=== PATIENT | male | born 1930 | race Caucasian/White ===

== ENCOUNTER → 2016-03-01 | Outpatient (CLI) | payer MEDICARE, OTHER ==
--- NOTE | 2016-03-01 14:40 | REP ---
Four view right ankle series 03/01/2016 Indication: Peña articular arthritis and comparison: None Findings: Deformity is seen within the distal tibia consistent with post traumatic changes and hypertrophic bone formation. There is a a transversely oriented fixation screw through the distal tibia . There is a lateral distal fibular side plate with multiple transverse interlocking screws. Moderate osteoarthritic changes are noted at the tibiotalar joint with moderate joint space narrowing and marginal osteophytes. There is a large spur as well as some dystrophic calcifications at the Achilles tendinous insertion on the posterior calcaneus. There is a minimal plantar calcaneal spur Impression: contour deformity within the distal tibia consistent with old healed fracture and hypertrophic bone formation. 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
== END ==
LOC: M CLY 11:08
PROVIDERS: ATTEND Family Medicine
DX: M19.071 Primary osteoarthritis, right ankle and foot (principal); M21.861 Other specified acquired deformities of right lower leg; Z87.898 Personal history of other specified conditions; E11.9 Type 2 diabetes mellitus without complications; Z98.890 Other specified postprocedural states; I10 Essential (primary) hypertension
CPT/HCPCS: 73610; 80048; 83036; 84550; 85652; 86140; G0463

== ENCOUNTER → 2016-03-01 | Outpatient (REF) | payer MEDICARE, OTHER ==
[2016-03-01 18:38] LABS: ANION GAP 11 MEQ/L (8-16); BLOOD UREA NITROGEN 24 MG/DL (7-18); CALCIUM LEVEL 8.9 MG/DL (8.8-10.2); CARBON DIOXIDE LEVEL 28 MEQ/L (21-32); CHLORIDE LEVEL 102 MEQ/L (98-107); GLOMERULAR FILTRATION RATE > 60.0 (>35); GLUCOSE, FASTING 123 MG/DL (83-110); POTASSIUM SERUM 4.1 MEQ/L (3.5-5.1); SODIUM LEVEL 141 MEQ/L (136-145); URIC ACID 7.9 MG/DL (3.5-7.2)
== END ==
LOC: M SFHCCLAY 10:45
PROVIDERS: ATTEND Family Medicine
DX: M13.10 Monoarthritis, not elsewhere classified, unspecified site (principal); I10 Essential (primary) hypertension; E11.9 Type 2 diabetes mellitus without complications

== ENCOUNTER → 2016-04-26 | Outpatient (REF) | payer MEDICARE, OTHER ==
[2016-04-29 00:06] LABS: Lyme Disease IgG/IgM Antibodie <0.91 ISR (0.00-0.90); Lyme Disease IgM Ab Quantitati <0.80 index (0.00-0.79)
== END ==
LOC: M SFHCCLAY 12:24
PROVIDERS: ATTEND Family Medicine
DX: G51.0 Bell's palsy (principal)
CPT/HCPCS: 86617; G0463

== ENCOUNTER → 2016-09-14 | Outpatient (REF) | payer MEDICARE, OTHER | LOC: M SFHCCLAY 11:16 | PROVIDERS: ATTEND Family Medicine | DX: E11.9 Type 2 diabetes mellitus without complications (principal) ==

== ENCOUNTER → 2017-01-31 | Outpatient (REF) | payer MEDICARE, OTHER ==
[2017-01-31 12:14] LABS: ANION GAP 6 MEQ/L (8-16); BLOOD UREA NITROGEN 19 MG/DL (7-18); CALCIUM LEVEL 8.8 MG/DL (8.8-10.2); CARBON DIOXIDE LEVEL 29 MEQ/L (21-32); CHLORIDE LEVEL 102 MEQ/L (98-107); CHOLESTEROL LEVEL 136 MG/DL (<200); CREATININE FOR GFR 1.01 MG/DL (0.70-1.30); GLOMERULAR FILTRATION RATE > 60.0 (>35); GLUCOSE, FASTING 152 MG/DL (83-110); POTASSIUM SERUM 4.2 MEQ/L (3.5-5.1); SODIUM LEVEL 137 MEQ/L (136-145); TRIGLYCERIDES LEVEL 131 MG/DL (<150)
== END ==
LOC: M SFHCCLAY 08:38
PROVIDERS: ATTEND Family Medicine
DX: E11.9 Type 2 diabetes mellitus without complications (principal); Z23 Encounter for immunization
CPT/HCPCS: 80048; 80061; 83036; 90662; G0008

== ENCOUNTER 2017-05-18 08:09 | Day surgery (SDC) | payer MEDICARE, OTHER ==
[2017-05-18] MEDS ORDERED: LR 1,000 ML IV ×2 (08:30→12:00)
[2017-05-18] MEDS ORDERED: dexameTHASONE 4 MG/ML 1ML VIAL (J1100) As Ordered (09:03)
[2017-05-18] MEDS ORDERED: ONDANSETRON 4MG/2ML VIAL (J2405) As Ordered (09:03)
[2017-05-18] MEDS ORDERED: LIDOCAINE 2% INJ 100 MG/5 ML SDV (FOR ANES.) As Ordered (09:03)
[2017-05-18] MEDS ORDERED: PROPOFOL 200 MG/20 ML VIAL As Ordered (09:03)
[2017-05-18] MEDS ORDERED: fentaNYL 100 MCG/2 ML INJECTION (J3010) As Ordered (09:04)
[2017-05-18] MEDS ORDERED: MIDAZOLAM INJ 2 MG/2 ML VIAL (J2250) As Ordered (09:04)
[2017-05-18] MEDS ORDERED: LIDOCAINE 2% JELLY 30 ML As Ordered (09:04)
[2017-05-18 09:38] LABS: BEDSIDE GLUCOSE 163 MG/DL (83-110)
[2017-05-18] MEDS: METHYLENE BLUE 0.5% (5MG/ML) 10 ML AMP (PROVAYBLUE)(Q9968 PER 1MG) As Ordered (09:40)
[2017-05-18] MEDS: EPINEPHrine 1MG/ML INJ 30ML MD-VIAL As Ordered (09:41)
[2017-05-18] MEDS: LIDOCAINE W/EPINEPHRINE 1% 20ML VIAL As Ordered (10:16)
[2017-05-18] MEDS: BACITRACIN OINT 30GM As Ordered (11:22)
[2017-05-18] MEDS ORDERED: PERCOCET 5MG/325MG TAB PO (12:00)
[2017-05-18] MEDS ORDERED: ONDANSETRON 4MG/2ML VIAL (J2405) IV (12:00)
[2017-05-18] MEDS ORDERED: fentaNYL 100 MCG/2 ML INJECTION (J3010) IV (12:00)
[2017-05-18] MEDS: NORCO, ANEXSIA 5/325MG TABLET (HYDROcodone/ACETAMINOPHEN) PO (12:20)
[2017-05-18] MEDS ORDERED: IBUPROFEN 800 MG TAB PO (16:00)
== END 2017-05-18 14:06 | disposition home or self-care (01) ==
LOC: M SDC 08:09
DX: C44.311 Basal cell carcinoma of skin of nose (principal); C44.222 Squamous cell carcinoma of skin of right ear and external auricular canal; I10 Essential (primary) hypertension; E11.9 Type 2 diabetes mellitus without complications; N40.0 Benign prostatic hyperplasia without lower urinary tract symptoms; Z79.899 Other long term (current) drug therapy; Z79.82 Long term (current) use of aspirin; Z79.1 Long term (current) use of non-steroidal anti-inflammatories (NSAID)
CPT/HCPCS: 11643

== ENCOUNTER → 2017-08-09 | Outpatient (REF) | payer MEDICARE, OTHER | LOC: M LAB REF 12:00 | DX: L57.8 Other skin changes due to chronic exposure to nonionizing radiation (principal) | CPT/HCPCS: 88305 ==

== ENCOUNTER → 2018-01-04 | Outpatient (REF) | payer MEDICARE, OTHER ==
[2018-01-04 17:07] LABS: HEMATOCRIT 42.6 % (42.0-52.0); HEMOGLOBIN 14.6 g/dl (13.5-17.5); MEAN CORPUSCULAR HEMOGLOBIN 30.7 pg (27.0-33.0); MEAN CORPUSCULAR HGB CONC 34.3 g/dl (32.0-36.5); MEAN CORPUSCULAR VOLUME 89.7 fl (80.0-96.0); PLATELET COUNT, AUTOMATED 305 10^3/uL (150-450); RED BLOOD COUNT 4.75 10^6/uL (4.30-6.10); RED CELL DISTRIBUTION WIDTH 12.9 % (11.5-14.5); WHITE BLOOD COUNT 11.6 10^3/uL (4.0-10.0)
[2018-01-04 17:19] LABS: ANION GAP 7 MEQ/L (8-16); BLOOD UREA NITROGEN 18 MG/DL (7-18); CALCIUM LEVEL 9.7 MG/DL (8.8-10.2); CARBON DIOXIDE LEVEL 28 MEQ/L (21-32); CHLORIDE LEVEL 100 MEQ/L (98-107); CREATININE FOR GFR 0.96 MG/DL (0.70-1.30); GLOMERULAR FILTRATION RATE > 60.0 (>35); GLUCOSE, FASTING 157 MG/DL (70-100); POTASSIUM SERUM 4.4 MEQ/L (3.5-5.1); SODIUM LEVEL 135 MEQ/L (136-145)
== END ==
LOC: M SFHCCLAY 09:41
DX: Z01.818 Encounter for other preprocedural examination (principal); K40.90 Unilateral inguinal hernia, without obstruction or gangrene, not specified as recurrent; E11.9 Type 2 diabetes mellitus without complications; I10 Essential (primary) hypertension; Z23 Encounter for immunization
CPT/HCPCS: 80048

== ENCOUNTER 2018-01-09 13:19 | Day surgery (SDC) | payer MEDICARE, OTHER ==
[~2018-01-09 13:19] MED LIST: LIDOCAINE 1% MDV 20ML VIAL SQ
[2018-01-09] MEDS: LR 1,000 ML IV (14:00)
[2018-01-09 14:07] LABS: BEDSIDE GLUCOSE 134 MG/DL (83-110)
[2018-01-09] MEDS ORDERED: ONDANSETRON 4MG/2ML VIAL (J2405) As Ordered ×2 (15:16→18:59)
[2018-01-09] MEDS ORDERED: LIDOCAINE 2% INJ 100 MG/5 ML SDV (FOR ANES.) As Ordered (15:16)
[2018-01-09] MEDS ORDERED: ROCURONIUM BROMIDE 50 MG/5 ML VIAL As Ordered (15:16)
[2018-01-09] MEDS ORDERED: PROPOFOL 200 MG/20 ML VIAL As Ordered (15:16)
[2018-01-09] MEDS ORDERED: MIDAZOLAM INJ 2 MG/2 ML VIAL (J2250) As Ordered (15:16)
[2018-01-09] MEDS ORDERED: fentaNYL 100 MCG/2 ML INJECTION (J3010) As Ordered ×2 (15:17→19:02)
[2018-01-09] MEDS: BUPIVACAINE HCL 0.25% 30 ML VIAL As Ordered (16:18)
[2018-01-09] MEDS ORDERED: dexameTHASONE 4 MG/ML 1ML VIAL (J1100) As Ordered ×2 (17:27→17:30)
[2018-01-09] MEDS ORDERED: KETOROLAC 60 MG/2 ML VIAL (J1885) As Ordered ×2 (17:27)
[2018-01-09] MEDS ORDERED: SUGAMMADEX SODIUM 500 MG/5 ML VIAL (BRIDION) As Ordered (17:27)
[2018-01-09] MEDS ORDERED: PERCOCET 5MG/325MG TAB PO (19:45)
[2018-01-09] MEDS ORDERED: fentaNYL 100 MCG/2 ML INJECTION (J3010) IV (19:45)
[2018-01-09] MEDS ORDERED: ACETAMINOPHEN TAB 650MG DOSE (2X325MG) PO (19:45)
[2018-01-09] MEDS ORDERED: NORCO, ANEXSIA 5/325MG TABLET (HYDROcodone/ACETAMINOPHEN) PO (19:45)
[2018-01-09] MEDS ORDERED: LR 1,000 ML IV (19:45)
[2018-01-09] MEDS ORDERED: HYDROMORPHONE HCL 0.5 MG/ 0.5 ML SYRINGE (J1170 PER 1) IV (19:45)
[2018-01-09] MEDS: ONDANSETRON 4MG/2ML VIAL (J2405) IV (20:32)
[2018-01-09] MEDS: diphenhydrAMINE INJ 50MG/ML VIAL (J1200) IV (21:55)
[2018-01-09] MEDS ORDERED: diphenhydrAMINE INJ 50MG/ML VIAL (J1200) As Ordered (21:56)
== END 2018-01-09 22:20 | disposition home or self-care (01) ==
LOC: M SDC 13:19
DX: K40.90 Unilateral inguinal hernia, without obstruction or gangrene, not specified as recurrent (principal); E11.9 Type 2 diabetes mellitus without complications; I10 Essential (primary) hypertension; N40.0 Benign prostatic hyperplasia without lower urinary tract symptoms; Z79.82 Long term (current) use of aspirin; Z79.899 Other long term (current) drug therapy
CPT/HCPCS: 49505

== ENCOUNTER → 2018-06-05 | Outpatient (REF) | payer MEDICARE, OTHER ==
[~2018-06-05] MED LIST changes: +ASPI81TA26 PO; +BENA20TA8 PO; +CARV6.25 PO; +FLOM0.4C39 PO; +GLIM1TAB PO; +HYDR12CA PO; -LIDOCAINE 1% MDV 20ML VIAL SQ; +NAPR-885 PO
[2018-06-05 16:34] LABS: ALBUMIN 3.8 GM/DL (3.2-5.2); BILIRUBIN,TOTAL 0.8 MG/DL (0.2-1.0); CALCIUM LEVEL 9.3 MG/DL (8.8-10.2); CHOLESTEROL RISK RATIO 5.366 (<5); CREATININE FOR GFR 1.25 MG/DL (0.70-1.30); GLOMERULAR FILTRATION RATE 58.2 (>35); POTASSIUM SERUM 4.1 MEQ/L (3.5-5.1); TOTAL PROTEIN 7.5 GM/DL (6.4-8.2)
[2018-06-05 16:47] LABS: CREATININE, URINE 48.8 MG/DL; MAU/CREAT RATIO 16.3 MCG/MG (0.0-30.0)
[2018-06-05 16:48] LABS: HEMOGLOBIN A1c 7.7 %
== END ==
LOC: M SFHCCLAY 10:26
PROVIDERS: ATTEND Family Medicine
DX: Z00.00 Encounter for general adult medical examination without abnormal findings (principal); E11.9 Type 2 diabetes mellitus without complications; I10 Essential (primary) hypertension
CPT/HCPCS: 80053; 80061; 82043; 83036; 90670; G0009

== ENCOUNTER → 2018-10-18 | Outpatient (REF) | payer MEDICARE, OTHER ==
[2018-10-18 17:23] LABS: BLOOD UREA NITROGEN 22 MG/DL (7-18); CALCIUM LEVEL 9.2 MG/DL (8.8-10.2); CARBON DIOXIDE LEVEL 28 MEQ/L (21-32); CHLORIDE LEVEL 101 MEQ/L (98-107); GLOMERULAR FILTRATION RATE > 60.0 (>35); GLUCOSE, FASTING 294 MG/DL (70-100); SODIUM LEVEL 136 MEQ/L (136-145)
[2018-10-18 20:02] LABS: HEMOGLOBIN A1c 8.3 %
== END ==
LOC: M SFHCCLAY 13:48
PROVIDERS: ATTEND Family Medicine
DX: E11.9 Type 2 diabetes mellitus without complications (principal)
CPT/HCPCS: 80048; 83036; G0463

== ENCOUNTER → 2019-04-11 | Outpatient (REF) | payer MEDICARE, OTHER ==
[~2019-04-11] MED LIST changes: -GLIM1TAB PO; +GLIM1TAB4 PO
[2019-04-11 18:06] LABS: CALCIUM LEVEL 8.8 MG/DL (8.8-10.2); CREATININE FOR GFR 1.31 MG/DL (0.70-1.30); GLOMERULAR FILTRATION RATE 55.1 (>35); POTASSIUM SERUM 4.1 MEQ/L (3.5-5.1)
== END ==
LOC: M SFHCCLAY 11:18
PROVIDERS: ATTEND Family Medicine
DX: E11.9 Type 2 diabetes mellitus without complications (principal); H61.23 Impacted cerumen, bilateral
CPT/HCPCS: 69209; 80048; 83036; G0463

== ENCOUNTER → 2019-10-10 | Outpatient (REF) | payer MEDICARE, OTHER ==
[2019-11-27 07:19] LABS: BLOOD UREA NITROGEN 19 MG/DL (7-18); CALCIUM LEVEL 9.4 MG/DL (8.8-10.2); CARBON DIOXIDE LEVEL 27 MEQ/L (21-32); CHLORIDE LEVEL 102 MEQ/L (98-107); CREATININE FOR GFR 1.12 MG/DL (0.70-1.30); GLOMERULAR FILTRATION RATE > 60.0 (>35); GLUCOSE, FASTING 212 MG/DL (70-100); HEMOGLOBIN A1c 6.8 %; POTASSIUM SERUM 3.8 MEQ/L (3.5-5.1); SODIUM LEVEL 137 MEQ/L (136-145)
== END ==
LOC: M SFHCCLAY 06:09
PROVIDERS: ATTEND Family Medicine
DX: E11.9 Type 2 diabetes mellitus without complications (principal); I10 Essential (primary) hypertension

== ENCOUNTER → 2020-10-21 | Outpatient (REF) | payer MEDICARE, OTHER ==
[2020-10-22 12:50] LABS: BLOOD UREA NITROGEN 16 MG/DL (7-18); CALCIUM LEVEL 9.4 MG/DL (8.8-10.2); CARBON DIOXIDE LEVEL 29 MEQ/L (21-32); CHLORIDE LEVEL 103 MEQ/L (98-107); CHOLESTEROL LEVEL 142 MG/DL (<200); CREATININE FOR GFR 0.96 MG/DL (0.70-1.30); GLOMERULAR FILTRATION RATE > 60.0 (>35); GLUCOSE, FASTING 188 MG/DL (70-100); HDL CHOLESTEROL 21 MG/DL (>40); POTASSIUM SERUM 3.9 MEQ/L (3.5-5.1); SODIUM LEVEL 138 MEQ/L (136-145); TRIGLYCERIDES LEVEL 257 MG/DL (<150)
[2020-10-22 12:51] LABS: CHOLESTEROL RISK RATIO 6.761 (<5); LDL CHOLESTEROL 70 MG/DL (<100); NON-HDL-C 121 MG/DL
[2020-10-22 17:52] LABS: HEMOGLOBIN A1c 7.3 %
== END ==
LOC: M SFHCCLAY 13:52
PROVIDERS: ATTEND Family Medicine
DX: I10 Essential (primary) hypertension (principal); E11.9 Type 2 diabetes mellitus without complications
CPT/HCPCS: 80048; 80061; 83036; G0463